=== PATIENT | male | born 1975 | race Caucasian/White ===

== ENCOUNTER 2022-03-07 09:00 | Outpatient (RCR) | payer OTHER, SELFPAY ==
--- NOTE | 2022-02-03 17:22 | HP.PTEVAL ---
Patient's Visit Information MICAELA MCHUGH is a 46 year old M referred to Physical Therapy by CARLEY GARCIA with a diagnosis of Spondylolisthesis, Lumbar Pain. Date of Evaluation: 02/03/22 Physical Therapist: Sharona Walker DPT - Visit Plan Frequency: 2x /Week Duration: 3 Weeks Plan: NEUTRAL SPINE EXERCISES. HEP Given IE: TA contraction, SLR with TA contraction, 90/90 hamstring stretch - Subjective Patient reports that he has had ongoing back pain since 06-25. Insidious onset- was active in high school- first spasm was in 2006 slept on his stomach and increased in frequency over the years- chiropractic didn't help a few days it would heal up. Since 2015 -Predisone, Flexeril and it would clear up. Went to PT at [facility]- was unsure if it helped or not and was more diligent in 2019 to start swimming. Swims freestyle 5 days a week- that is the only thing that keeps him from constant pain. He is at his witts end with his pain- last bad flare up was 5 months ago- it lasted 3 days for not moving but he wasn't able to sit for a month and nagging pain has been gone for a few weeks. He has constant dull and achy pain that radiates across a little lower than beltline- never radiates down the leg. PCP gave him to Meloxicam which took the edge off- [facility]- he has had x-rays which showed facet arthritis but nothing crazy- insurance denied his MRI before he does therapy. [employer]itness Studies [employer]'s [employer] and football and is a teacher at [employer]- - Objective Posture: Sitting: very guarded- does not like to sit- changes positions often- FH, RS- can correct with verbal cues. Standing: guarded- mild FH, RS- challenged to find neutral. Gait: no deviation noted good arm swing and trunk rotation. SLS: 10 sec without LOB. HR/TR: able. ROM: Lumbar: flexion: hands to knees, Extn: neutral, SB/Rot: WNL, Hip/Knee/Ankle: WFL. Strength: Core: fair (TA contraction visible-able to hold with bent knee SLR), Hip: 4+/5 throughout, Ankle/Knee: 5/5. Flex: HS: severe, Gastroc: moderate. Special Test: LLD: negative, Pelvic Alignment: WFL, Did not test repeated motions due to flares when not in neutral alignment. Sensation: WFL to gross touch bilaterally. Palpation: increased tenderness and ropyness of his lumbar parapspinals - Special Tests L/S Slump test left side: Negative L/S Slump test right side: Negative L/S Left Straight Leg Raise: Negative L/S Right Straight Leg Raise: Negative - Balance/Special Test Scores Oswestry Low Back Score: 13 - Goals Goal 1:: Patient will be I with HEP and progression Goal Time Frame: 4-6 Weeks Goal 2:: Patient will maintain proper posture t/o tx session to demo increased core s/s Goal Time Frame: 6-8 Weeks Goal 3:: Patient will report 80% improvement Goal Time Frame: 4-6 Weeks - Rehabilitation Potential Physical Therapy Diagnosis: Patient presents with hypomobility- he has decreased LE and core strength/stabilization, flex and muscular endurance leading to poor posture and increased pain with ADL's. Rehabilitation Potential: Good - Anticipated Interventions Patient/Client Instruction: Educate patient on: Benefits of Fitness Program Therapeutic Exercise to Include: Strength training, Endurance training, Balance training, Coordination, Agility training, Body mechanics, Postural training, Flexibilty training, Gait and locomotor training, Neuromotor development, Dynamic Lumbar Stabilization, Scapular Strength/Stabilization For the Purpose of:: To improve muscle performance and motor function Thank you for the opportunity to evaluate your patient. For Medicare and Medicare HMO plans, please review the plan of care and approve it. It will need to be FAXED BACK to us at [phone] for Medicare purposes. For Medicare only, by signing this I certify the plan of care. Please let me know if there are questions or concerns regarding this plan of care. Physician Signature: Date:
--- NOTE | 2022-03-07 09:28 | HP.PTDCSUM_ITS ---
It has been my pleasure to treat MICAELA MCHUGH referred by CARLEY GARCIA, with the diagnosis of Spondylolisthesis, Lumbar Pain for a total of 8 visit(s). Discharge Date: Please see the following information for a summary of their discharge status. Subjective: Since starting therapy he feels that he is 0% better-he feels that his symptoms are the same or getting worse. At this point regular activities are becoming harder and he is having a hard time finding a comfortable position. He feels that PT has helped with thought process of positioning, posture and anatomy. In the last week pain at its worst was a 4/10 and he has not been painfree. Patient reports he got up this morning and he went swimming- felt pretty good after but then reached into his car to put his bag away and the pain increased. The swimming use to help with pain mgmt but its getting less and less effective. He feels the back is always angry and can flare with the l ittlest movement. Sleep: he can get max of 6 hours and then he has to get up and move around and is unable to fall back to sleep. Back pain is affecting quality of life. Low Back Pain Intensity (Out of 10): 2 % Improvement: 0 Objective/Function: Posture: Sitting: very guarded- does not like to sit- changes positions often- FH, RS- can correct with verbal cues. Standing: guarded- mild FH, RS- challenged to find neutral. Gait: no deviation noted good arm swing and trunk rotation. SLS: 30 sec without LOB. HR/TR: able. ROM: Lumbar: flexion: hands to ha but slow to return and reports pain Extn: neutral with pain, SB/Rot: decreased by 50% with discomfort, Hip/Knee/Ankle: WFL. Strength: Core: fair (TA contraction visible-able to hold with bent knee SLR), Hip: 4+/5 throughout, Ankle/Knee: 5/5- pain with all testing right>left. Flex: HS: severe, Gastroc: moderate. Special Test: LLD: negative, Pelvic Alignment: WFL, Did not test repeated motions due to flares when not in neutral alignment. Sensation: WFL to gross touch bilaterally. Palpation: increased tenderness and ropyness of his lumbar parapspinals. - Special Tests. L/S Slump test left side: Positive. L/S Slump test right side: Positive. L/S Left Straight Leg Raise: Positive. L/S Right Straight Leg Raise: Positive Goal 1:: Patient will be I with HEP and progression Goal Progress: Goal Met Goal 2:: Patient will maintain proper posture t/o tx session to demo increased core s/s Goal Progress: Not Progressing Goal 3:: Patient will report 80% improvement Goal Progress: Not Progressing Plan: 03/07/21: Discharge- return to MD for further evaluation- pt to continue home exercise program is pain allows. IE: NEUTRAL SPINE EXERCISES. HEP Given IE: TA contraction, SLR with TA contraction, 90/90 hamstring stretch If there are questions or concerns regarding this patient's physical therapy, please feel free to call me at [phone]. Thank you for the referral of this patient. Sincerely, Sharona Walker, DPT Balance/Gait/Functional tests - Balance/Special Test Scores Oswestry Low Back Score: 22
== END 2022-03-07 09:42 | disposition home or self-care (01) ==
LOC: PT 09:00
PROVIDERS: PCP Student in an Organized Health Care Education/Training Program
DX: M43.16 Spondylolisthesis, lumbar region (principal); M54.51 Vertebrogenic low back pain
CPT/HCPCS: 97014; 97110; 97162; 97164; 97530; G0283